=== PATIENT | female | born 2005 | race Caucasian/White ===

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

== ENCOUNTER → 2023-01-29 | Outpatient (CLI) | payer BC | LOC: LAB 08:17 → LAB SHORT 08:17 | DX: N39.0 Urinary tract infection, site not specified (principal) | CPT/HCPCS: 87077; 87086; 87186 ==

== ENCOUNTER → 2024-12-22 | Outpatient (CLI) | payer BC | LOC: LAB SHORT 18:14 → LAB 18:14 | DX: N39.0 Urinary tract infection, site not specified (principal) | CPT/HCPCS: 87077; 87086; 87186 ==

== ENCOUNTER → 2025-03-25 | Outpatient (CLI) | payer BC | LOC: LAB SHORT 08:50 | DX: N39.0 Urinary tract infection, site not specified (principal) | CPT/HCPCS: 87086 ==